=== PATIENT | male | born 1950 | race African-American/Black ===

== ENCOUNTER 2017-01-23 15:16 | Inpatient (IN) | payer MEDICARE ==
[~2017-01-23] VITALS: Ht 185.4 cm; Wt 88.2 kg
[2017-01-23 15:18] VITALS: BP 122/61; PULSE 78; RESP 20; TEMP 97.5; O2SAT 100
--- NOTE | 2017-01-23 16:03 | PD ---
HPI Chief Complaint: General Weakness Time Seen by Provider: 15:50 Travel History International Travel<30 days: No Contact w/Intl Traveler<30days: No Traveled to known affect area: No History of Present Illness HPI This is a 66-year-old male who presents for evaluation of black tarry stools, generalized weakness and lightheadedness. Symptoms have been ongoing for the past 2 days. He reports that twice in the past year he has been hospitalized for upper GI bleed and this feels similar. Denies any abdominal pain, nausea or vomiting, hematochezia, chest pain or shortness of breath. He endorses regular aspirin use. Denies any other NSAID use. He reports that he is currently in town for bike week, he lives in [place]. He has no other complaints at this time. [facility] Social History Alcohol Use: No Tobacco Use: Yes Allergies-Medications (Allergen,Severity, Reaction): Coded Allergies: No Known Allergies (Unverified , 01/23/17) Review of Systems Except as stated in HPI: all other systems reviewed are Neg Physical Exam Narrative GENERAL: Well-nourished male in no acute distress SKIN: Warm and dry. HEAD: Atraumatic. Normocephalic. EYES: Pupils equal and round. No scleral icterus. No injection or drainage. ENT: No nasal bleeding or discharge. Mucous membranes pink and moist. NECK: Trachea midline. No JVD. CARDIOVASCULAR: Regular rate and rhythm. No murmur appreciated. RESPIRATORY: No accessory muscle use. Clear to auscultation. Breath sounds equal bilaterally. GASTROINTESTINAL: Abdomen soft, non-tender, nondistended. Hepatic and splenic margins not palpable. MUSCULOSKELETAL: No obvious deformities. No edema. NEUROLOGICAL: Awake and alert. No obvious cranial nerve deficits. Motor grossly within normal limits. Normal speech. PSYCHIATRIC: Appropriate mood and affect; insight and judgment normal. Data Data Last Documented VS Vital Signs Date Time Temp Pulse Resp B/P Pulse Ox O2 Delivery O2 Flow Rate FiO2 01/23/17 15:18 97.5 78 20 122/61 100 Room Air Orders Type And Screen (01/23/17 15:59) Complete Blood Count With Diff (01/23/17 15:59) Comprehensive Metabolic Panel (01/23/17 15:59) Act Partial Throm Time (Ptt) (01/23/17 15:59) Prothrombin Time / Inr (Pt) (01/23/17 15:59) Red Blood Cells (Rbc) (01/23/17 17:09) Blood Product Administration .UPON TRANSFUSION (01/23/17 17:09) Sodium Chlor 0.9% 250 Ml Inj (Ns 250 Ml (01/23/17 17:15) Labs Laboratory Tests Test 01/23/17 16:10 White Blood Count 7.8 TH/MM3 Red Blood Count 2.90 MIL/MM3 Hemoglobin 6.7 GM/DL Hematocrit 21.5 % Mean Corpuscular Volume 74.2 FL Mean Corpuscular Hemoglobin 22.9 PG Mean Corpuscular Hemoglobin 30.9 % Concent Red Cell Distribution Width 15.9 % Platelet Count 320 TH/MM3 Mean Platelet Volume 6.5 FL Neutrophils (%) (Auto) 63.1 % Lymphocytes (%) (Auto) 22.2 % Monocytes (%) (Auto) 10.0 % Eosinophils (%) (Auto) 3.8 % Basophils (%) (Auto) 0.9 % Neutrophils # (Auto) 4.9 TH/MM3 Lymphocytes # (Auto) 1.7 TH/MM3 Monocytes # (Auto) 0.8 TH/MM3 Eosinophils # (Auto) 0.3 TH/MM3 Basophils # (Auto) 0.1 TH/MM3 CBC Comment AUTO DIFF Prothrombin Time 10.4 SEC Prothromb Time International 0.9 RATIO Ratio Activated Partial 23.8 SEC Thromboplast Time Sodium Level 142 MEQ/L Potassium Level 4.1 MEQ/L Chloride Level 106 MEQ/L Carbon Dioxide Level 28.2 MEQ/L Anion Gap 8 MEQ/L Blood Urea Nitrogen 21 MG/DL Creatinine 1.12 MG/DL Estimat Glomerular Filtration 66 ML/MIN Rate Random Glucose 90 MG/DL Calcium Level 8.5 MG/DL Total Bilirubin 0.2 MG/DL Aspartate Amino Transf 19 U/L (AST/SGOT) Alanine Aminotransferase 30 U/L (ALT/SGPT) Alkaline Phosphatase 83 U/L Total Protein 6.8 GM/DL Albumin 3.2 GM/DL Blood Type O POSITIVE Antibody Screen NEGATIVE Blood Bank Comment MDM Medical Decision Making Medical Screen Exam Complete: Yes Emergency Medical Condition: Yes Medical Record Reviewed: Yes Differential Diagnosis Upper GI bleed, peptic ulcer disease, Milana-Gaitan tear, critical anemia Narrative Course 66-year-old male presents with black tarry stools, generalized weakness and lightheadedness for the past 2 days. Patient was initially seen in triage where workup was initiated. He'll be moved to a medical bed when one becomes available. Brady Bennett Jan 23, 2017 16:03
[2017-01-23 16:42] LABS: AUTOMATED NEUTROPHIL # 4.9 TH/MM3 (1.8-7.7); BASOPHIL # 0.1 TH/MM3 (0-0.2); BASOPHIL % 0.9 % (0.0-2.0); EOSINOPHIL # 0.3 TH/MM3 (0-0.4); EOSINOPHIL % 3.8 % (0.0-4.0); HEMATOCRIT 21.5 % (39.0-51.0); LYMPH % 22.2 % (9.0-44.0); LYMPHOCYTE # 1.7 TH/MM3 (1.0-4.8); MEAN CELL VOLUME 74.2 FL (80.0-100.0); MEAN CORPUSCULAR HEMOGLOBIN 22.9 PG (27.0-34.0); MEAN CORPUSCULAR HGB CONC 30.9 % (32.0-36.0); NEUT % 63.1 % (16.0-70.0); PLATELET COUNT 320 TH/MM3 (150-450); RED CELL DISTRIBUTION WIDTH 15.9 % (11.6-17.2); WHITE BLOOD COUNT 7.8 TH/MM3 (4.0-11.0)
[2017-01-23 16:48] LABS: HEMO FLAGS AUTO DIFF
[2017-01-23 16:59] LABS: ALT (GPT) 30 U/L (12-78); ANION GAP 8 MEQ/L (5-15); APTT (PATIENT) 23.8 SEC (24.3-30.1); AST (GOT) 19 U/L (15-37); BICARBONATE 28.2 MEQ/L (21.0-32.0); BLOOD UREA NITROGEN 21 MG/DL (7-18); CHLORIDE 106 MEQ/L (98-107); GLOMERULAR FILTRATION RATE 66 ML/MIN (>89); INTERNATIONAL NORMALIZED RATIO 0.9 RATIO; POTASSIUM 4.1 MEQ/L (3.5-5.1); PROTHROMBIN TIME - PATIENT 10.4 SEC (9.8-11.6); SODIUM (NA) 142 MEQ/L (136-145)
[2017-01-23 17:01] LABS: ALKALINE PHOSPHATASE 83 U/L (45-117); TOTAL BILIRUBIN ADULT 0.2 MG/DL (0.2-1.0)
[2017-01-23] MEDS ORDERED: SODIUM CHLOR 0.9% 250 ML INJ 250 ML IV ONE (17:15)
[2017-01-23] MEDS: SODIUM CHLOR 0.9% 1000 ML INJ 1,000 ML IV SCH (17:26)
--- NOTE | 2017-01-23 17:27 | PD ---
HPI Chief Complaint: General Weakness Time Seen by Provider: 17:09 Travel History International Travel<30 days: No Contact w/Intl Traveler<30days: No Traveled to known affect area: No History of Present Illness HPI 66-year-old male from [place] with history of GI bleed and previous transfusion 3 months ago, presents to the ER today because he has had about 4-5 days history of general tiredness, and yesterday started having black stools. He had talked to his GI doctor at home and was told to get evaluated further. He states he is here because of that. He has also experienced some chest discomfort. He denies any coughing, fevers, vomiting, or any other symptoms. Modifying Factors: None Associated Signs & Symptoms: General weakness, chest discomfort, black stools Risk Factors: GI bleed history PFSH Social History Alcohol Use: No Tobacco Use: Yes Allergies-Medications (Allergen,Severity, Reaction): Coded Allergies: No Known Allergies (Unverified , 01/23/17) Review of Systems Except as stated in HPI: all other systems reviewed are Neg Physical Exam Narrative GENERAL: Well-developed elderly -[place]i male in no acute distress. Awake and oriented 3. SKIN: Warm and dry. HEAD: Atraumatic. Normocephalic. EYES: Pupils equal and round. No scleral icterus. No injection or drainage. ENT: No nasal bleeding or discharge. Mucous membranes pink and moist. NECK: Trachea midline. No JVD. CARDIOVASCULAR: Regular rate and rhythm. No murmur appreciated. RESPIRATORY: No accessory muscle use. Clear to auscultation. Breath sounds equal bilaterally. GASTROINTESTINAL: Abdomen soft, non-tender, nondistended. Hepatic and splenic margins not palpable. RECTAL EXAM: No masses or tenderness, stool is dark and Hemoccult-positive. MUSCULOSKELETAL: No obvious deformities. No clubbing. No cyanosis. No edema. NEUROLOGICAL: Awake and alert. No obvious cranial nerve deficits. Motor grossly within normal limits. Normal speech. PSYCHIATRIC: Appropriate mood and affect; insight and judgment normal. Data Data Last Documented VS Vital Signs Date Time Temp Pulse Resp B/P Pulse Ox O2 Delivery O2 Flow Rate FiO2 01/23/17 15:18 97.5 78 20 122/61 100 Room Air Orders Type And Screen (01/23/17 15:59) Complete Blood Count With Diff (3/16/17 15:59) Comprehensive Metabolic Panel (01/23/17 15:59) Act Partial Throm Time (Ptt) (01/23/17 15:59) Prothrombin Time / Inr (Pt) (01/23/17 15:59) Red Blood Cells (Rbc) (01/23/17 17:09) Blood Product Administration .UPON TRANSFUSION (01/23/17 17:09) Sodium Chlor 0.9% 250 Ml Inj (Ns 250 Ml (01/23/17 17:15) Pantoprazole Inj (Protonix Inj) (01/23/17 17:30) Admit Order (Ed Use Only) (01/23/17 17:20) Labs Laboratory Tests Test 01/23/17 16:10 White Blood Count 7.8 TH/MM3 Red Blood Count 2.90 MIL/MM3 Hemoglobin 6.7 GM/DL Hematocrit 21.5 % Mean Corpuscular Volume 74.2 FL Mean Corpuscular Hemoglobin 22.9 PG Mean Corpuscular Hemoglobin 30.9 % Concent Red Cell Distribution Width 15.9 % Platelet Count 320 TH/MM3 Mean Platelet Volume 6.5 FL Neutrophils (%) (Auto) 63.1 % Lymphocytes (%) (Auto) 22.2 % Monocytes (%) (Auto) 10.0 % Eosinophils (%) (Auto) 3.8 % Basophils (%) (Auto) 0.9 % Neutrophils # (Auto) 4.9 TH/MM3 Lymphocytes # (Auto) 1.7 TH/MM3 Monocytes # (Auto) 0.8 TH/MM3 Eosinophils # (Auto) 0.3 TH/MM3 Basophils # (Auto) 0.1 TH/MM3 CBC Comment AUTO DIFF Prothrombin Time 10.4 SEC Prothromb Time International 0.9 RATIO Ratio Activated Partial 23.8 SEC Thromboplast Time Sodium Level 142 MEQ/L Potassium Level 4.1 MEQ/L Chloride Level 106 MEQ/L Carbon Dioxide Level 28.2 MEQ/L Anion Gap 8 MEQ/L Blood Urea Nitrogen 21 MG/DL Creatinine 1.12 MG/DL Estimat Glomerular Filtration 66 ML/MIN Rate Random Glucose 90 MG/DL Calcium Level 8.5 MG/DL Total Bilirubin 0.2 MG/DL Aspartate Amino Transf 19 U/L (AST/SGOT) Alanine Aminotransferase 30 U/L (ALT/SGPT) Alkaline Phosphatase 83 U/L Total Protein 6.8 GM/DL Albumin 3.2 GM/DL Blood Type O POSITIVE Antibody Screen NEGATIVE Blood Bank Comment MDM Medical Decision Making Medical Screen Exam Complete: Yes Emergency Medical Condition: Yes Medical Record Reviewed: Yes Interpretation(s) Laboratory Tests Test 01/23/17 16:10 Red Blood Count 2.90 MIL/MM3 (4.50-5.90) Hemoglobin 6.7 GM/DL (13.0-17.0) Hematocrit 21.5 % (39.0-51.0) Mean Corpuscular Volume 74.2 FL (80.0-100.0) Mean Corpuscular Hemoglobin 22.9 PG (27.0-34.0) Mean Corpuscular Hemoglobin 30.9 % Concent (32.0-36.0) Mean Platelet Volume 6.5 FL (7.0-11.0) Monocytes (%) (Auto) 10.0 % (0.0-8.0) Activated Partial 23.8 SEC Thromboplast Time (24.3-30.1) Blood Urea Nitrogen 21 MG/DL (7-18) Estimat Glomerular Filtration 66 ML/MIN (>89) Rate Albumin 3.2 GM/DL (3.4-5.0) Differential Diagnosis Dehydration versus metabolic issues versus GI bleed versus dysrhythmias Narrative Course Lab work shows significant anemia. Hemoccult is positive on the stool. IV fluids and PRBCs were initiated in the ER and Protonix was given. Plan to admit the patient for further treatment. Case is discussed with Dr. Bey for admission. Consult to GI. [facility] Point of Care Internal Pos. & Neg. Controls: Passed Fecal Specimen Occult Blood: Positive Diagnosis Primary Impression: GI bleed Additional Impression: Severe anemia Admitting Information Admitting Physician Requests: Admit Fabián Scott MD Jan 23, 2017 17:27
[2017-01-23 17:30] VITALS: O2SAT 100
[2017-01-23] MEDS ORDERED: PANTOPRAZOLE SODIUM 40 MG VIAL IV PUSH ONE (17:30)
[2017-01-23] MEDS ORDERED: ONDANSETRON HCL 4 MG/2 ML VIAL IV PRN (17:30)
[2017-01-23] MEDS ORDERED: SODIUM CHLORIDE 0.9% FLUSH 5 ML FLUSH FLUSH PRN ×2 (17:30→20:00)
[2017-01-23 17:40] LABS: ACANTHOCYTES 1+ (NORMAL); OVALOCYTES 1+ (NORMAL)
[2017-01-23 17:41] LABS: PLATELET ESTIMATE SMEAR NORMAL (NORMAL); PLATELET MORPHOLOGY NORMAL (NORMAL); SCAN/DIFF AUTO DIFF CONFIRMED
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
[2017-01-23] MEDS ORDERED: ROBA750T PO (19:12)
[2017-01-23] MEDS ORDERED: BENA40TA PO (19:12)
[2017-01-23] MEDS ORDERED: ASPI81CH CHEW (19:12)
[2017-01-23] MEDS ORDERED: HYDR-3580 PO (19:12)
[2017-01-23] MEDS ORDERED: TRAZ50TA12 PO (19:12)
[2017-01-23] MEDS ORDERED: BUSP5TAB PO (19:12)
[2017-01-23] MEDS ORDERED: ROPI2TAB PO (19:12)
[2017-01-23 19:13] VITALS: BP 107/67; PULSE 71; RESP 17; O2SAT 100
[2017-01-23 19:23] VITALS: BP 115/74; PULSE 76; RESP 16; TEMP 98.5; O2SAT 100
[2017-01-23 19:24] VITALS: BP 142/68; PULSE 80; RESP 20; TEMP 98.2; O2SAT 96
[2017-01-23] MEDS ORDERED: MAGNESIUM HYDROXIDE SUSP 30 ML CUP PO PRN (20:00)
[2017-01-23] MEDS ORDERED: ACETAMINOPHEN 325 MG TAB PO PRN (20:00)
[2017-01-23] MEDS ORDERED: ONDANSETRON HCL 4 MG/2 ML VIAL IVP PRN (20:00)
[2017-01-23] MEDS ORDERED: BISACODYL 10 MG SUPP PR PRN (20:00)
[2017-01-23] MEDS ORDERED: ACETAMINOPHEN/HYDROcodone 325 MG/7.5 MG TAB PO PRN (20:00)
[2017-01-23] MEDS ORDERED: PILL SPLITTER OTHER PRN (20:30)
[2017-01-23] MEDS ORDERED: SODIUM CHLORIDE 0.9% FLUSH 5 ML FLUSH FLUSH SCH (21:00)
[2017-01-23] MEDS: traZODone HCL 50 MG TAB PO SCH (21:31)
[2017-01-23] MEDS: busPIRone HCL 5 MG TAB PO SCH (21:31)
[2017-01-23] MEDS: PANTOPRAZOLE SODIUM 40 MG VIAL IV SCH (21:31)
[2017-01-23] MEDS: SODIUM CHLORIDE 0.9% FLUSH 5 ML FLUSH FLUSH SCH (21:32)
[2017-01-23] MEDS: ACETAMINOPHEN/HYDROcodone 325 MG/5 MG TAB PO PRN (21:50)
[2017-01-24] VITALS (11 sets, daily range): BP systolic 91–154; BP diastolic 53–86; PULSE 62–86; RESP 16–22; TEMP 97.3–98.4; O2SAT 97–99
[2017-01-24] MEDS: SODIUM CHLOR 0.9% 1000 ML INJ 1,000 ML IV SCH ×3 (03:26→21:04)
[2017-01-24 06:37] LABS: AUTOMATED NEUTROPHIL # 4.7 TH/MM3 (1.8-7.7); BASOPHIL % 0.7 % (0.0-2.0); EOSINOPHIL # 0.5 TH/MM3 (0-0.4); EOSINOPHIL % 7.1 % (0.0-4.0); HEMATOCRIT 26.1 % (39.0-51.0); LYMPH % 21.5 % (9.0-44.0); LYMPHOCYTE # 1.6 TH/MM3 (1.0-4.8); MEAN CELL VOLUME 75.3 FL (80.0-100.0); MEAN CORPUSCULAR HEMOGLOBIN 23.7 PG (27.0-34.0); MEAN CORPUSCULAR HGB CONC 31.5 % (32.0-36.0); MONO % 7.6 % (0.0-8.0); NEUT % 63.1 % (16.0-70.0); PLATELET COUNT 286 TH/MM3 (150-450); RED BLOOD COUNT 3.47 MIL/MM3 (4.50-5.90); RED CELL DISTRIBUTION WIDTH 16.8 % (11.6-17.2); WHITE BLOOD COUNT 7.4 TH/MM3 (4.0-11.0)
[2017-01-24 06:41] LABS: HEMO FLAGS AUTO DIFF
[2017-01-24 06:51] LABS: ALT (GPT) 23 U/L (12-78); ANION GAP 8 MEQ/L (5-15); AST (GOT) 15 U/L (15-37); BICARBONATE 27.8 MEQ/L (21.0-32.0); BLOOD UREA NITROGEN 14 MG/DL (7-18); CHLORIDE 107 MEQ/L (98-107); GLOMERULAR FILTRATION RATE 100 ML/MIN (>89); POTASSIUM 4.1 MEQ/L (3.5-5.1); SODIUM (NA) 143 MEQ/L (136-145)
[2017-01-24 06:53] LABS: ALKALINE PHOSPHATASE 66 U/L (45-117); TOTAL BILIRUBIN ADULT 0.5 MG/DL (0.2-1.0)
[2017-01-24 07:19] LABS: SCAN/DIFF AUTO DIFF CONFIRMED
[2017-01-24] MEDS: busPIRone HCL 5 MG TAB PO SCH ×2 (08:14→21:02)
[2017-01-24] MEDS: LISINOPRIL 20 MG TAB PO SCH (08:14)
[2017-01-24] MEDS: METHOCARBAMOL 500 MG TAB PO SCH ×3 (08:15→18:00)
[2017-01-24] MEDS: PANTOPRAZOLE SODIUM 40 MG VIAL IV SCH ×2 (08:15→20:59)
[2017-01-24] MEDS: SODIUM CHLORIDE 0.9% FLUSH 5 ML FLUSH FLUSH SCH ×2 (08:15→21:00)
[2017-01-24] MEDS ORDERED: NON-FORMULARY DRUG (Benazepril 40 MG) PO SCH (09:00)
[2017-01-24] MEDS: ACETAMINOPHEN/HYDROcodone 325 MG/5 MG TAB PO PRN ×2 (10:50→21:00)
--- NOTE | 2017-01-24 11:30 | HHI.PR ---
Subjective Remarks Feels much better after blood transfusion. No lightheadedness, sob, n/v/d/c. Did not have a BM since yesterday when it was black. No overt bleeding. Plan for EGD. Patient plans to to back to [place] tomorrow. Discussed with GI service plan for EGD. Objective Vitals Vital Signs Date Time Temp Pulse Resp B/P Pulse Ox O2 Delivery O2 Flow Rate FiO2 01/24/17 08:00 97.7 67 22 120/73 98 01/24/17 04:00 97.9 64 18 100/61 99 01/24/17 03:12 98.4 86 20 142/86 97 01/24/17 00:00 97.6 86 18 91/53 98 01/23/17 22:50 20 01/23/17 19:24 98.2 80 20 142/68 96 01/23/17 19:23 98.5 76 16 115/74 100 Room Air 01/23/17 19:13 71 17 107/67 100 Room Air 01/23/17 17:30 100 21 01/23/17 15:18 97.5 78 20 122/61 100 Room Air I/O 01/23/17 01/23/17 01/23/17 01/24/17 01/24/17 01/24/17 07:00 15:00 23:00 07:00 15:00 23:00 Intake Total 900 ml Output Total 400 ml Balance 500 ml Intake Oral 50 ml IV Total 300 ml Packed Cells 550 ml Output Urine Total 400 ml Stool Total 0 ml # Voids 2 # Bowel Movements 0 Result Diagram: 01/24/17 0550 01/24/17 0550 Objective Remarks GENERAL: This is a well-nourished, well-developed patient, in no apparent distress. SKIN: No rashes, ecchymoses or lesions. Cool and dry. HEAD: Atraumatic. Normocephalic. No temporal or scalp tenderness. EYES: Pupils equal round and reactive. Extraocular motions intact. No scleral icterus. No injection or drainage. ENT: Nose without bleeding, purulent drainage or septal hematoma. Throat without erythema, tonsillar hypertrophy or exudate. Uvula midline. Airway patent. NECK: Trachea midline. No JVD or lymphadenopathy. Supple, nontender, no meningeal signs. CARDIOVASCULAR: Regular rate and rhythm without murmurs, gallops, or rubs. RESPIRATORY: Clear to auscultation. Breath sounds equal bilaterally. No wheezes , rales, or rhonchi. GASTROINTESTINAL: Abdomen soft, non-tender, nondistended. No hepato-splenomegaly , or palpable masses. No guarding. MUSCULOSKELETAL: Extremities without clubbing, cyanosis, or edema. No joint tenderness, effusion, or edema noted. No calf tenderness. Negative Homans sign bilaterally. NEUROLOGICAL: Awake and alert. Cranial nerves II through XII intact. Motor and sensory grossly within normal limits. Five out of 5 muscle strength in all muscle groups. Normal speech. A/P Assessment and Plan 66 yo M with Anemia likely due to GI bleed. Melanotic stool. H/o GERD / gastritis with recent EGD in [place] Start IVF . Monitor VS closely. Hemoglobin is 6.7 on admission Type and screen. Transfuse 2 units of blood Monitor H&H. Transfuse if hgb< 7 or if symptomatic anemia and hgb < 9 Start protonix 40 mg IV BID. Consider octreotide. Consult GI , plan for EGD HTN: Hold BP meds. Monitor BP Chronic medical problems stable. Restart home meds. DVT ppx : SCD/TEDs, chemical ppx CI 2/2 GIB Discussed Condition With patient, nurse, GI team Victoria Chun MD Jan 24, 2017 11:30
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
--- NOTE | 2017-01-24 13:48 | EKG ---
Date Performed: 01/24/2017 Time Performed: 13:34:25 PTAGE: 66 years EKG: Sinus rhythm NONSPECIFIC T-WAVE ABNORMALITY ABNORMAL ECG NO PREVIOUS TRACING DOCTOR: Arcadio Chen Interpretating Date/Time 01/24/2017 13:48:04
[2017-01-24] MEDS ORDERED: PROPOFOL 200 MG/20 ML AMP IV ONE (14:56)
--- NOTE | 2017-01-24 15:22 | GIPROC ---
[facility] [address] [facility]. [facility], [address] EGD PROCEDURE REPORT EXAM DATE: 01/24/2017 PATIENT NAME: Avinash Calvillo MR #: [id number] BIRTHDATE: 1950 ATTENDING: Mao Kent MD ORDER #: [id number] BEAM DYER RECESSED VAT: [address] and [address] STATUS: inpatient INDICATIONS: The patient is a 66 yr old male here for an EGD due to iron deficiency anemia and melena PROCEDURE PERFORMED: EGD, diagnostic MEDICATIONS: None and Per Anesthesia. TOPICAL ANESTHETIC: CONSENT: The patient understands the risks and benefits of the procedure and understands that these risks include, but are not limited to: sedation, allergic reaction, infection, perforation and/or bleeding. Alternative means of evaluation and treatment include, among others: physical exam, x-rays, and/or surgical intervention. The patient elects to proceed with this endoscopic procedure. medical equipment was checked for proper function. Hand hygiene and appropriate measures for infection prevention was taken. After the risks, benefits and alternatives of the procedure were thoroughly explained, Informed consent was verified, confirmed and timeout was successfully executed by the treatment team. The patient was anesthetized with topical anesthesia and the Pentax EG-[id number] endoscope was introduced through the mouth and advanced to the second portion of the duodenum. Retroflexed views revealed no abnormalities The gastroscope was then slowly withdrawn and removed. STOMACH: A smooth mass measuring 3 X 3cm in size was found in the gastric fundus. Varices Vs. sub mucosal nodule with slow ooze of blood . Very friable. Seems very vascular. ADVERSE EVENTS: There were no complications. IMPRESSIONS: 1. 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 sub mucosal nodule with slow ooze of blood . Very friable. Seems very vascular 2. Retroflexed views revealed no abnormalities RECOMMENDATIONS: 1. Continue PPI 2. Stat Angiogram requested, call palced to IR, transfuse 1 unit of blood WAYNE. IV octreotide. PATIENT CONDITION: stable DISPOSITION: Inpatient REPEAT EXAM: Return as needed for EGD Mao Kent MD eSigned: Mao Kent MD 01/24/2017 3:21 PM cc: PATIENT NAME: Avinash Calvillo MR#: [id number]
[2017-01-24] MEDS ORDERED: SODIUM CHLOR 0.9% 250 ML INJ 250 ML IV ONE (15:45)
[2017-01-24] MEDS ORDERED: IOHEXOL 350 MG/ML 10 ML VIAL (for RAD DIAG) IV ONE (16:04)
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
[2017-01-24 18:04] LABS: HEMATOCRIT 29.1 % (39.0-51.0)
[2017-01-24 18:19] LABS: REVIEW FLAG FINAL
[2017-01-24] MEDS: traZODone HCL 50 MG TAB PO SCH (20:59)
[2017-01-24] MEDS ORDERED: CHLORHEXIDINE GLUCONATE 2 % 1 PACK (2 CLOTHS)(extra cloths) TOP PRN (21:00)
[2017-01-25] VITALS (15 sets, daily range): BP systolic 105–159; BP diastolic 63–98; PULSE 52–69; RESP 14–16; TEMP 97.8–98.5; O2SAT 95–97
[2017-01-25 02:25] LABS: REVIEW FLAG FINAL
[2017-01-25] MEDS: CHLORHEXIDINE GLUCONATE 2 % 1 PACK (2 CLOTHS)(taper/protocol) TOP SCH ×2 (03:28→20:12)
[2017-01-25 05:14] LABS: HEMATOCRIT 27.7 % (39.0-51.0)
[2017-01-25 05:30] LABS: REVIEW FLAG FINAL
[2017-01-25] MEDS: ACETAMINOPHEN/HYDROcodone 325 MG/5 MG TAB PO PRN ×3 (07:48→20:54)
[2017-01-25] MEDS: busPIRone HCL 5 MG TAB PO SCH ×2 (07:49→20:11)
[2017-01-25] MEDS: PANTOPRAZOLE SODIUM 40 MG VIAL IV SCH ×2 (07:49→20:05)
[2017-01-25] MEDS: LISINOPRIL 20 MG TAB PO SCH (07:50)
--- NOTE | 2017-01-25 08:47 | HHI.PR ---
Subjective Remarks Had diarrhea dark colored last night after eating Jello. No abdominal pain . No n/v/. Feels tired, but no more sob, lightheadedness. Denies chest pain. Tolerated CLD. No fever or chills. Has chronic back pain controlled by meds. Objective Vitals Vital Signs Date Time Temp Pulse Resp B/P Pulse Ox O2 Delivery O2 Flow Rate FiO2 01/25/17 08:00 63 01/25/17 06:00 58 01/25/17 04:00 60 01/25/17 04:00 98.0 60 14 115/71 97 01/25/17 02:00 67 01/25/17 01:56 96 21 01/25/17 00:00 97.9 62 14 105/63 96 01/25/17 00:00 62 01/25/17 00:00 97.9 62 14 105/63 96 01/24/17 22:00 85 01/24/17 20:00 63 01/24/17 20:00 98.1 63 16 154/82 98 01/24/17 19:59 98.1 63 16 154/82 98 01/24/17 18:19 99 21 01/24/17 15:24 61 16 103/78 100 01/24/17 15:19 59 16 104/69 100 01/24/17 15:14 98.6 59 16 105/69 96 01/24/17 12:50 97.3 62 22 121/74 99 01/24/17 12:21 97.3 62 22 121/74 99 01/24/17 10:05 98 21 I/O 01/24/17 01/24/17 01/24/17 01/25/17 01/25/17 01/25/17 07:00 15:00 23:00 07:00 15:00 23:00 Intake Total 900 ml 1330 ml 529 ml Output Total 400 ml 550 ml 400 ml 450 ml Balance 500 ml -550 ml 930 ml 79 ml Intake Oral 50 ml 480 ml IV Total 300 ml 600 ml 529 ml Packed Cells 550 ml 250 ml Output Urine Total 400 ml 550 ml 400 ml 450 ml Stool Total 0 ml # Voids 2 # Bowel Movements 0 1 Result Diagram: 01/25/17 0445 01/24/17 0550 Imaging Last Impressions Abdomen/Pelvis CT 01/24/17 0000 Signed Impressions: Service Date/Time: Tuesday, January 24, 2017 16:03 - CONCLUSION: 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 MRI evaluation may be warranted. No evidence of suspicious lymphadenopathy. Lumbar degenerative disease No evidence of destructive bone lesions. Tevin Martinez MD Objective Remarks GENERAL: This is a well-nourished, well-developed patient, in no apparent distress. SKIN: No rashes, ecchymoses or lesions. Cool and dry. HEAD: Atraumatic. Normocephalic. No temporal or scalp tenderness. EYES: Pupils equal round and reactive. Extraocular motions intact. No scleral icterus. No injection or drainage. ENT: Nose without bleeding, purulent drainage or septal hematoma. Throat without erythema, tonsillar hypertrophy or exudate. Uvula midline. Airway patent. NECK: Trachea midline. No JVD or lymphadenopathy. Supple, nontender, no meningeal signs. CARDIOVASCULAR: Regular rate and rhythm without murmurs, gallops, or rubs. RESPIRATORY: Clear to auscultation. Breath sounds equal bilaterally. No wheezes , rales, or rhonchi. GASTROINTESTINAL: Abdomen soft, non-tender, nondistended. No hepato-splenomegaly , or palpable masses. No guarding. MUSCULOSKELETAL: Extremities without clubbing, cyanosis, or edema. No joint tenderness, effusion, or edema noted. No calf tenderness. Negative Homans sign bilaterally. NEUROLOGICAL: Awake and alert. Cranial nerves II through XII intact. Motor and sensory grossly within normal limits. Five out of 5 muscle strength in all muscle groups. Normal speech. A/P Assessment and Plan 66 yo M with Anemia likely due to GI bleed. Melanotic stool. H/o GERD / gastritis with recent EGD in [place] on IVF . Monitor VS closely. Hemoglobin is 6.7 on admission Type and screen. Transfused 2 units of blood Monitor H&H. Transfuse if hgb< 7 or if symptomatic anemia and hgb < 9 On protonix 40 mg IV BID. Started octreotide. Consult GI , s/p EGD 01/24/[address] Light. I spoke with Dr Light. 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 Patient wa transfered to ICU and received additional 1U pRBC . General surgery was consulted, spoke with Dr Trinh, poss plan for surgery if continues to bleed. So far H/H is stable. If remains stable patient can fly back to [place] for surgery. If unstable will surgery here per Dr Trinh, appreciate recommendations. The patient agrees with the plan. HTN: Hold BP meds. Monitor BP Chronic medical problems stable. Restart home meds. DVT ppx : SCD/TEDs, chemical ppx CI 2/2 GIB Discussed Condition With patient, ICU nurse Victorai Chun MD Jan 25, 2017 08:47
[2017-01-25] MEDS: SODIUM CHLORIDE 0.9% FLUSH 5 ML FLUSH FLUSH SCH ×2 (09:00→20:05)
[2017-01-25] MEDS: METHOCARBAMOL 500 MG TAB PO SCH ×3 (09:00→17:54)
[2017-01-25] MEDS: SODIUM CHLOR 0.9% 1000 ML INJ 1,000 ML IV SCH ×2 (09:26→20:05)
--- NOTE | 2017-01-25 13:04 | PD.CAR.PN ---
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 Patient initially came with anemia and slow bleed and at this point hemoglobin remained stable after transfusion of 3 units of blood Full consult has been dictated and for details please refer to this one. If patient continues to bleed I will be happy to resect the tumor, however patient is from your li[place] and would like to go home to have surgery there. Therefore if patient does not bleed the next 24-48 hours and hemoglobin remains stable I'm comfortable discharging the patient to have him go to [place] to have the surgery there Surgeon placed preferable the patient flies back home to shorten the period of time when he is not under medical observation. We will continue to follow patient which you Thanks J Objective: Vital Signs Date Time Temp Pulse Resp B/P Pulse Ox O2 Delivery O2 Flow Rate FiO2 01/25/17 12:08 98.0 60 16 159/98 97 01/25/17 12:00 63 01/25/17 10:00 63 01/25/17 09:12 95 01/25/17 08:00 98.0 65 14 150/82 97 01/25/17 08:00 63 01/25/17 06:00 58 01/25/17 04:00 60 01/25/17 04:00 98.0 60 14 115/71 97 01/25/17 02:00 67 01/25/17 01:56 96 21 01/25/17 00:00 97.9 62 14 105/63 96 01/25/17 00:00 62 01/25/17 00:00 97.9 62 14 105/63 96 01/24/17 22:00 85 01/24/17 20:00 63 01/24/17 20:00 98.1 63 16 154/82 98 01/24/17 19:59 98.1 63 16 154/82 98 01/24/17 18:19 99 21 01/24/17 15:24 61 16 103/78 100 01/24/17 15:19 59 16 104/69 100 01/24/17 15:14 98.6 59 16 105/69 96 Labs: Laboratory Tests Test 01/25/17 01/25/17 01:47 04:45 Hemoglobin 9.0 GM/DL 9.0 GM/DL (13.0-17.0) (13.0-17.0) Hematocrit 28.0 % 27.7 % (39.0-51.0) (39.0-51.0) Result Diagram: 01/25/17 0445 01/24/17 0550 Bert Trinh MD Jan 25, 2017 13:04
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
--- NOTE | 2017-01-25 16:00 | HHI.GIFU ---
Subjective Remarks Resting in bed. No abdominal pain. No n/v. No active bleeding. (An Pena) Objective Vitals I&O Vital Signs Date Time Temp Pulse Resp B/P Pulse Ox O2 Delivery O2 Flow Rate FiO2 01/25/17 14:00 61 01/25/17 12:08 98.0 60 16 159/98 97 01/25/17 12:00 63 01/25/17 10:00 63 01/25/17 09:12 95 01/25/17 08:00 98.0 65 14 150/82 97 01/25/17 08:00 63 01/25/17 06:00 58 01/25/17 04:00 60 01/25/17 04:00 98.0 60 14 115/71 97 01/25/17 02:00 67 01/25/17 01:56 96 21 01/25/17 00:00 97.9 62 14 105/63 96 01/25/17 00:00 62 01/25/17 00:00 97.9 62 14 105/63 96 01/24/17 22:00 85 01/24/17 20:00 63 01/24/17 20:00 98.1 63 16 154/82 98 01/24/17 19:59 98.1 63 16 154/82 98 01/24/17 18:19 99 21 I/O 01/24/17 01/24/17 01/24/17 01/25/17 01/25/17 01/25/17 07:00 15:00 23:00 07:00 15:00 23:00 Intake Total 900 ml 1330 ml 529 ml 1280 ml Output Total 400 ml 550 ml 400 ml 450 ml 525 ml Balance 500 ml -550 ml 930 ml 79 ml 755 ml Intake Oral 50 ml 480 ml 480 ml IV Total 300 ml 600 ml 529 ml 550 ml Packed Cells 550 ml 250 ml 250 ml Output Urine Total 400 ml 550 ml 400 ml 450 ml 525 ml Stool Total 0 ml # Voids 2 # Bowel Movements 0 1 1 Laboratory Laboratory Tests Test 01/24/17 01/24/17 01/24/17 01/25/17 16:57 17:45 18:30 01:47 Blood Type O POSITIVE Crossmatch Leukocyte-Reduced Red Blood Cells Blood Bank Comment Hemoglobin 9.2 9.0 Hematocrit 29.1 28.0 Nasal Screen MRSA (PCR) NEGATIVE Test 01/25/17 04:45 Hemoglobin 9.0 Hematocrit 27.7 Imaging Last Impressions Abdomen/Pelvis CT 01/24/17 0000 Signed Impressions: Service Date/Time: Tuesday, January 24, 2017 16:03 - CONCLUSION: 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 MRI evaluation may be warranted. No evidence of suspicious lymphadenopathy. Lumbar degenerative disease No evidence of destructive bone lesions. Tevin Martinez MD Physical Exam HEENT: Normocephalic; atraumatic; no jaundice. Throat is clear. NECK: Neck is supple, no JVD, no lymphadenopathy. CHEST: CTA CARDIAC: RRR ABDOMEN: Soft, mildly bloated, nontender; no hepatosplenomegaly; bowel sounds are present in all four quadrants. EXTREMITIES: No clubbing, cyanosis, or edema. SKIN: Normal; no rash; no jaundice. 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 (An Pena) Assessment and Plan Plan ASSESSMENT: - GIST tumor, with bleeding. S/P EGD as below. The bleeding seems to have stopped, as his Hgb has since remained stable and there has not been any obvious active bleeding. CVT following, initially wanted to try to return home and have surgery there, but now states he would like to have the surgery done at this facility. Will defer to CVT. - GI bleed/melena. S/P EGD (01/24/17)-----> 1. 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 sub mucosal nodule with slow ooze of blood . Very friable. Seems very vascular. 2. Retroflexed views revealed no abnormalities. Dr. Kent d/w IR. CVT consulted. Protonix. No obvious active bleeding. HH 9.0/27.7. - Anemia. secondary to blood loss. S/P 3 units PRBC. HH 9.0/27.7. - Anxiety, BPH, HTN, per attending Plan: - Clear liquids - Cont. PPI - Monitor HH - Transfuse as needed - CVT following - Supportive care - Patient seen and examined by Dr Plunkett and myself and this note is written on his behalf. (An Pena) Physician Comments Patient seen and examined Agree with above Continue with current supportive care Monitor labs. Patient apparently will be driving back to [place] through [place] I agree with Dr. Ibarra patient should not spend too much time without close medical contact As such I will defer to surgery for decision regarding resection of the bleeding GIST Not much to add from a GI standpoint this patient does not have any active bleeding at this point in time we will sign off (Rubio Plunkett MD) An Pena Jan 25, 2017 16:00 Rubio Plunkett MD Jan 25, 2017 17:21
[2017-01-25] MEDS: traZODone HCL 50 MG TAB PO SCH (20:05)
[2017-01-26] VITALS: BP 177/94; PULSE 59; PULSE 69; RESP 16; TEMP 98.4; O2SAT 97
[2017-01-26 02:00] VITALS: PULSE 59
[2017-01-26 04:00] VITALS: BP 177/94; PULSE 62; PULSE 69; RESP 16; TEMP 98.4; O2SAT 97
[2017-01-26] MEDS: SODIUM CHLOR 0.9% 1000 ML INJ 1,000 ML IV SCH (04:52)
[2017-01-26 06:00] VITALS: PULSE 63
[2017-01-26 06:41] LABS: AUTOMATED NEUTROPHIL # 3.5 TH/MM3 (1.8-7.7); BASOPHIL % 0.5 % (0.0-2.0); EOSINOPHIL # 0.5 TH/MM3 (0-0.4); EOSINOPHIL % 8.6 % (0.0-4.0); HEMATOCRIT 28.6 % (39.0-51.0); LYMPH % 21.4 % (9.0-44.0); LYMPHOCYTE # 1.3 TH/MM3 (1.0-4.8); MEAN CELL VOLUME 77.2 FL (80.0-100.0); MEAN CORPUSCULAR HEMOGLOBIN 24.8 PG (27.0-34.0); MEAN CORPUSCULAR HGB CONC 32.2 % (32.0-36.0); MONO % 9.4 % (0.0-8.0); NEUT % 60.1 % (16.0-70.0); PLATELET COUNT 296 TH/MM3 (150-450); RED BLOOD COUNT 3.71 MIL/MM3 (4.50-5.90); RED CELL DISTRIBUTION WIDTH 17.3 % (11.6-17.2); WHITE BLOOD COUNT 5.9 TH/MM3 (4.0-11.0)
[2017-01-26 06:50] LABS: POTASSIUM 3.7 MEQ/L (3.5-5.1)
[2017-01-26 06:51] LABS: BICARBONATE 25.4 MEQ/L (21.0-32.0)
[2017-01-26 06:57] LABS: HEMO FLAGS AUTO DIFF
--- NOTE | 2017-01-26 07:30 | HHI.PR ---
Subjective Remarks Denies abd pain. No n/v. Has diarrhea, nonbloody. Denies fever or chills. Says he is on CLD and would like to advance diet as he has diarrhea from CLD. H/H so far stable. Says he would prefer to have surgery done here as he is afraid to travel. Objective Vitals Vital Signs Date Time Temp Pulse Resp B/P Pulse Ox O2 Delivery O2 Flow Rate FiO2 01/26/17 06:00 63 01/26/17 04:00 62 01/26/17 04:00 98.4 69 16 177/94 97 01/26/17 02:00 59 01/26/17 00:00 59 01/26/17 00:00 98.4 69 16 177/94 97 01/25/17 22:00 52 01/25/17 21:54 20 01/25/17 20:00 98.5 64 16 153/72 97 01/25/17 20:00 69 01/25/17 18:00 61 01/25/17 16:00 97.8 64 16 153/72 97 01/25/17 16:00 61 01/25/17 14:00 61 01/25/17 12:08 98.0 60 16 159/98 97 01/25/17 12:00 63 01/25/17 10:00 63 01/25/17 09:12 95 01/25/17 08:00 98.0 65 14 150/82 97 01/25/17 08:00 63 I/O 01/25/17 01/25/17 01/25/17 01/26/17 01/26/17 01/26/17 07:00 15:00 23:00 07:00 15:00 23:00 Intake Total 529 ml 1280 ml 980 ml 636 ml Output Total 450 ml 525 ml 350 ml 300 ml Balance 79 ml 755 ml 630 ml 336 ml Intake Oral 480 ml 350 ml 90 ml IV Total 529 ml 550 ml 630 ml 546 ml Packed Cells 250 ml Output Urine Total 450 ml 525 ml 350 ml 300 ml # Bowel Movements 1 0 0 Result Diagram: 01/26/17 0600 01/26/17 0600 Imaging Last Impressions Abdomen/Pelvis CT 01/24/17 0000 Signed Impressions: Service Date/Time: Tuesday, January 24, 2017 16:03 - CONCLUSION: 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 MRI evaluation may be warranted. No evidence of suspicious lymphadenopathy. Lumbar degenerative disease No evidence of destructive bone lesions. Tevin Martinez MD Objective Remarks GENERAL: This is a well-nourished, well-developed patient, in no apparent distress. SKIN: No rashes, ecchymoses or lesions. Cool and dry. HEAD: Atraumatic. Normocephalic. No temporal or scalp tenderness. EYES: Pupils equal round and reactive. Extraocular motions intact. No scleral icterus. No injection or drainage. ENT: Nose without bleeding, purulent drainage or septal hematoma. Throat without erythema, tonsillar hypertrophy or exudate. Uvula midline. Airway patent. NECK: Trachea midline. No JVD or lymphadenopathy. Supple, nontender, no meningeal signs. CARDIOVASCULAR: Regular rate and rhythm without murmurs, gallops, or rubs. RESPIRATORY: Clear to auscultation. Breath sounds equal bilaterally. No wheezes , rales, or rhonchi. GASTROINTESTINAL: Abdomen soft, non-tender, nondistended. No hepato-splenomegaly , or palpable masses. No guarding. MUSCULOSKELETAL: Extremities without clubbing, cyanosis, or edema. No joint tenderness, effusion, or edema noted. No calf tenderness. Negative Homans sign bilaterally. NEUROLOGICAL: Awake and alert. Cranial nerves II through XII intact. Motor and sensory grossly within normal limits. Five out of 5 muscle strength in all muscle groups. Normal speech. A/P Assessment and Plan 66 yo M with Anemia likely due to GI bleed. Melanotic stool. H/o GERD / gastritis with recent EGD in [place] on IVF . Monitor VS closely. Hemoglobin is 6.7 on admission Type and screen. Transfused 2 units of blood Monitor H&H. Transfuse if hgb< 7 or if symptomatic anemia and hgb < 9 On protonix 40 mg IV BID. Started octreotide. Consult GI , s/p EGD 01/24/[address] Light. I spoke with Dr Light. 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 Patient wa transfered to ICU and received additional 1U pRBC . General surgery was consulted, spoke with Dr Trinh, poss plan for surgery if continues to bleed. So far H/H is stable. If remains stable patient can fly back to [place] for surgery. If unstable will surgery here per Dr Trinh, appreciate recommendations. The patient agrees with the plan. HTN: Hold BP meds. Monitor BP Chronic medical problems stable. Restart home meds. DVT ppx : SCD/TEDs, chemical ppx CI 2/2 GIB Discussed Condition With patient, ICU nurse Patient is telling me he would prefer to have surgery by Dr Trinh here rather than go back. Says he is afraid to travel and wants the surgery done. Victoria Chun MD Jan 26, 2017 07:30
[2017-01-26] MEDS ORDERED: PANT40TA3 PO (07:31)
--- NOTE | 2017-01-26 07:32 | HHI.DS ---
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 Symptoms have been ongoing for the past 2 days. He reports that twice in the past year he has been hospitalized for upper GI bleed and this feels similar. Denies any abdominal pain, nausea or vomiting, hematochezia , chest pain or shortness of breath. He endorses regular aspirin use. Denies any other NSAID use. He reports that he is currently in town for bike week, he lives in [place]. He has no other complaints at this time. Says he finiched pantoprazole and he did not see his GI specialist yet for f/u. CBC/BMP: 01/26/17 0600 01/26/17 0600 Significant Findings Laboratory Tests Test 01/23/17 01/24/17 01/24/17 01/25/17 16:10 05:50 17:45 01:47 Red Blood Count 2.90 MIL/MM3 3.47 MIL/MM3 (4.50-5.90) (4.50-5.90) Hemoglobin 6.7 GM/DL 8.2 GM/DL 9.2 GM/DL 9.0 GM/DL (13.0-17.0) (13.0-17.0) (13.0-17.0) (13.0-17.0) Hematocrit 21.5 % 26.1 % 29.1 % 28.0 % (39.0-51.0) (39.0-51.0) (39.0-51.0) (39.0-51.0) Mean Corpuscular Volume 74.2 FL 75.3 FL (80.0-100.0) (80.0-100.0) Mean Corpuscular Hemoglobin 22.9 PG 23.7 PG (27.0-34.0) (27.0-34.0) Mean Corpuscular Hemoglobin 30.9 % 31.5 % Concent (32.0-36.0) (32.0-36.0) Mean Platelet Volume 6.5 FL 6.5 FL (7.0-11.0) (7.0-11.0) Monocytes (%) (Auto) 10.0 % (0.0-8.0) Ovalocytes 1+ (NORMAL) Acanthocytes 1+ (NORMAL) Activated Partial 23.8 SEC Thromboplast Time (24.3-30.1) Blood Urea Nitrogen 21 MG/DL (7-18) Estimat Glomerular Filtration 66 ML/MIN (>89) Rate Albumin 3.2 GM/DL 2.8 GM/DL (3.4-5.0) (3.4-5.0) Eosinophils (%) (Auto) 7.1 % (0.0-4.0) Eosinophils # (Auto) 0.5 TH/MM3 (0-0.4) Total Protein 6.2 GM/DL (6.4-8.2) Test 01/25/17 01/26/17 04:45 06:00 Hemoglobin 9.0 GM/DL 9.2 GM/DL (13.0-17.0) (13.0-17.0) Hematocrit 27.7 % 28.6 % (39.0-51.0) (39.0-51.0) Red Blood Count 3.71 MIL/MM3 (4.50-5.90) Mean Corpuscular Volume 77.2 FL (80.0-100.0) Mean Corpuscular Hemoglobin 24.8 PG (27.0-34.0) Red Cell Distribution Width 17.3 % (11.6-17.2) Mean Platelet Volume 6.4 FL (7.0-11.0) Monocytes (%) (Auto) 9.4 % (0.0-8.0) Eosinophils (%) (Auto) 8.6 % (0.0-4.0) Eosinophils # (Auto) 0.5 TH/MM3 (0-0.4) Chloride Level 109 MEQ/L (98-107) Calcium Level 8.2 MG/DL (8.5-10.1) Imaging Last Impressions Abdomen/Pelvis CT 01/24/17 0000 Signed Impressions: Service Date/Time: Tuesday, January 24, 2017 16:03 - CONCLUSION: 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 MRI evaluation may be warranted. No evidence of suspicious lymphadenopathy. Lumbar degenerative disease No evidence of destructive bone lesions. Tevin Martinez MD PE at Discharge GENERAL: This is a well-nourished, well-developed patient, in no apparent distress. SKIN: No rashes, ecchymoses or lesions. Cool and dry. HEAD: Atraumatic. Normocephalic. No temporal or scalp tenderness. EYES: Pupils equal round and reactive. Extraocular motions intact. No scleral icterus. No injection or drainage. ENT: Nose without bleeding, purulent drainage or septal hematoma. Throat without erythema, tonsillar hypertrophy or exudate. Uvula midline. Airway patent. NECK: Trachea midline. No JVD or lymphadenopathy. Supple, nontender, no meningeal signs. CARDIOVASCULAR: Regular rate and rhythm without murmurs, gallops, or rubs. RESPIRATORY: Clear to auscultation. Breath sounds equal bilaterally. No wheezes , rales, or rhonchi. GASTROINTESTINAL: Abdomen soft, non-tender, nondistended. No hepato-splenomegaly , or palpable masses. No guarding. MUSCULOSKELETAL: Extremities without clubbing, cyanosis, or edema. No joint tenderness, effusion, or edema noted. No calf tenderness. Negative Homans sign bilaterally. NEUROLOGICAL: Awake and alert. Cranial nerves II through XII intact. Motor and sensory grossly within normal limits. Five out of 5 muscle strength in all muscle groups. Normal speech. Hospital Course 66 yo M with Anemia likely due to GI bleed. Melanotic stool. H/o GERD / gastritis with recent EGD in [place] on IVF . Monitor VS closely. Hemoglobin is 6.7 on admission Type and screen. Transfused 2 units of blood Monitor H&H. Transfuse if hgb< 7 or if symptomatic anemia and hgb < 9 On protonix 40 mg IV BID. Started octreotide. Consult GI , s/p EGD 01/24/[address] Light. I spoke with Dr Light. 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 Patient wa transfered to ICU and received additional 1U pRBC . General surgery was consulted, spoke with Dr Trinh, poss plan for surgery if continues to bleed. So far H/H is stable. If remains stable patient can fly back to [place] for surgery. If unstable will surgery here per Dr Trinh, appreciate recommendations. The patient agrees with the plan. HTN: Hold BP meds. Monitor BP Chronic medical problems stable. Restart home meds. DVT ppx : SCD/TEDs, chemical ppx CI 2/2 GIB Discussed Condition With patient, ICU nurse Patient is telling me he would prefer to have surgery by Dr Trinh here rather than go back. Says he is afraid to travel and wants the surgery done. Dr Trinh reasurred patient. His HGB has been stable. Patient is cleared for DC by Dr Trinh to follow up with his surgeon for surgery . Patient tolerates food. No more bleeding. Was dC in fairly stable condition to follow up as Op with PCP and consultants Pt Condition on Discharge: Stable Discharge Disposition: Discharge Home Discharge Time: <= 30 minutes Discharge Instructions DIET: Follow Instructions for: Heart Healthy Diet Activities you can perform: Regular-No Restrictions Follow up Referrals: PCP Follow-up - 2-3 Days Surgical - Next Day New Medications: Ferrous Sulfate (Iron) 325 Mg Tab 325 MG PO DAILY Take Nutritional Supplement #30 Ref 0 TAB Pantoprazole (Pantoprazole) 40 Mg Tab 40 MG PO DAILY Reflux #30 Ref 0 TAB Continued Medications: Aspirin (Aspirin) 81 Mg Chew 81 MG CHEW DAILY Ref 0 TAB Benazepril (Benazepril) 40 Mg Tab 40 MG PO DAILY Blood Pressure Management #0 Ref 0 TAB Buspirone (Buspirone) 5 Mg Tab 5 MG PO BID Anxiety Ref 0 TAB Hydrocodone-Acetaminophen (Hydrocodone-Acetaminophen) 7.5-325 mg Tab 1 TAB PO Q6H PRN PAIN Ref 0 TAB Methocarbamol (Robaxin) 750 Mg Tab 750 MG PO TID Muscle Spasm Ref 0 TAB Ropinirole (Ropinirole) 2 Mg Tab 2 MG PO HS #0 Ref 0 TAB Trazodone (Trazodone) 50 Mg Tab 50 MG PO HS Control Depression #0 Ref 0 TAB Victoria Chun MD Jan 26, 2017 07:32
[2017-01-26] MEDS ORDERED: FERR1TAB36 PO (07:34)
[2017-01-26 07:45] LABS: ACANTHOCYTES OCC (NORMAL)
[2017-01-26 07:46] LABS: OVALOCYTES 1+ (NORMAL); PLATELET ESTIMATE SMEAR NORMAL (NORMAL); PLATELET MORPHOLOGY NORMAL (NORMAL); SCAN/DIFF AUTO DIFF CONFIRMED
[2017-01-26 08:00] VITALS: BP 134/90; PULSE 63; PULSE 66; RESP 16; TEMP 98.6; O2SAT 94
[2017-01-26] MEDS: PANTOPRAZOLE SODIUM 40 MG VIAL IV SCH (08:43)
[2017-01-26] MEDS: LISINOPRIL 20 MG TAB PO SCH (08:44)
[2017-01-26] MEDS: busPIRone HCL 5 MG TAB PO SCH (08:44)
[2017-01-26] MEDS: METHOCARBAMOL 500 MG TAB PO SCH (08:44)
[2017-01-26 10:00] VITALS: PULSE 63
== END 2017-01-26 10:20 | disposition home or self-care (01) | DRG 543 ==
LOC: NEPC 15:16 → NEDA 17:24 → N05B 19:43 → HIMN 01-24 18:30
PROVIDERS: ADMIT Hospitalist; ATTEND Hospitalist
PROC: 30233N1 Transfusion of Nonautologous Red Blood Cells into Peripheral Vein, Percutaneous Approach (ICD-10-PCS; 2017-01-23)
PROC: 0DJ08ZZ Inspection of Upper Intestinal Tract, Via Natural or Artificial Opening Endoscopic (ICD-10-PCS; principal; 2017-01-24 14:49)
DX: C49.A0 Gastrointestinal stromal tumor, unspecified site (principal); K92.2 Gastrointestinal hemorrhage, unspecified; D50.0 Iron deficiency anemia secondary to blood loss (chronic); I10 Essential (primary) hypertension; F32.9 Major depressive disorder, single episode, unspecified; G89.29 Other chronic pain; N40.0 Benign prostatic hyperplasia without lower urinary tract symptoms; K21.9 Gastro-esophageal reflux disease without esophagitis; F41.9 Anxiety disorder, unspecified; Z79.82 Long term (current) use of aspirin; Z72.0 Tobacco use
CPT/HCPCS: 36430; 74177; 80048; 80053; 85014; 85018; 85025; 85610; 85730; 86850; 86900; 86901; 86920; 87641; 93005; 99285; C9113; J7030; J7050; P9016; Q9967